=== PATIENT | male | born 1985 | race Caucasian/White ===

== ENCOUNTER 2018-01-30 11:01 | Emergency (ER) | payer OTHER | END 2018-01-30 12:49 | disposition home or self-care (01) | LOC: D.ER 11:01 | DX: M62.838 Other muscle spasm (principal); S16.1XXA Strain of muscle, fascia and tendon at neck level, initial encounter; V86.59XA Driver of other special all-terrain or other off-road motor vehicle injured in nontraffic accident, initial encounter; Y93.89 Activity, other specified; Y92.89 Other specified places as the place of occurrence of the external cause; F17.200 Nicotine dependence, unspecified, uncomplicated ==

== ENCOUNTER 2018-03-24 09:33 | Emergency (ER) | payer OTHER | END 2018-03-24 10:30 | disposition home or self-care (01) | LOC: D.ER 09:33 | DX: M17.11 Unilateral primary osteoarthritis, right knee (principal) ==

== ENCOUNTER 2018-06-16 11:49 | Emergency (ER) | payer OTHER ==
[~2018-06-16] VITALS: Ht 175.3 cm; Wt 64.5 kg
[2018-06-16 12:16] VITALS: BP 138/75; Ht 175.3 cm; Wt 64.5 kg
== END 2018-06-16 14:34 | disposition home or self-care (01) ==
LOC: D.ER 11:49
DX: F41.9 Anxiety disorder, unspecified (principal); R51 Headache; V49.9XXA Car occupant (driver) (passenger) injured in unspecified traffic accident, initial encounter; Y93.89 Activity, other specified; Y92.410 Unspecified street and highway as the place of occurrence of the external cause; F17.200 Nicotine dependence, unspecified, uncomplicated

== ENCOUNTER 2018-06-24 15:54 | Emergency (ER) | payer OTHER ==
[~2018-06-24] VITALS: Ht 175.3 cm; Wt 63.6 kg
[2018-06-24 16:08] VITALS: Ht 175.3 cm; Wt 63.6 kg
[2018-06-24] MEDS ORDERED: TORADOL10 MG PO (17:26)
[2018-06-24 18:32] VITALS: BP 136/78
== END 2018-06-24 18:33 | disposition home or self-care (01) ==
LOC: D.ER 15:54
DX: S01.91XA Laceration without foreign body of unspecified part of head, initial encounter (principal); Y04.2XXA Assault by strike against or bumped into by another person, initial encounter; Y93.89 Activity, other specified; Y92.89 Other specified places as the place of occurrence of the external cause; S50.811A Abrasion of right forearm, initial encounter; S40.211A Abrasion of right shoulder, initial encounter; F17.200 Nicotine dependence, unspecified, uncomplicated

== ENCOUNTER 2018-07-07 18:40 | Emergency (ER) | payer OTHER ==
[~2018-07-07] VITALS: Ht 175.3 cm; Wt 77.3 kg
[~2018-07-07 18:40] MED LIST: TORADOL10 MG PO
[2018-07-07 18:43] VITALS: Ht 175.3 cm; Wt 77.3 kg
[2018-07-07 21:29] LABS: APPEARANCE CLEAR (CLEAR); BILIRUBIN NEGATIVE (NEGATIVE); COLOR YELLOW (YELLOW); GLUCOSE NEGATIVE (NEGATIVE); KETONE NEGATIVE (NEGATIVE); NITRITE NEGATIVE (NEGATIVE); PROTEIN TRACE mg/dL (NEGATIVE); SPECIFIC GRAVITY 1.025 (1.005-1.020); UROBILINOGEN NORMAL (NORMAL)
[2018-07-07 21:39] LABS: UDS - AMPHET POSITIVE QUAL (NEGATIVE); UDS - BARB NEGATIVE QUAL (NEGATIVE); UDS - BENZO NEGATIVE QUAL (NEGATIVE); UDS - COCAINE NEGATIVE QUAL (NEGATIVE); UDS - OPIATE NEGATIVE QUAL (NEGATIVE); UDS - PCP NEGATIVE QUAL (NEGATIVE); UDS - THC NEGATIVE QUAL (NEGATIVE)
[2018-07-08 01:45] VITALS: BP 138/82
== END 2018-07-08 00:29 | disposition other institution (70) ==
LOC: D.ER 18:40
PROVIDERS: Family Medicine
DX: S12.600A Unspecified displaced fracture of seventh cervical vertebra, initial encounter for closed fracture (principal); S32.019A Unspecified fracture of first lumbar vertebra, initial encounter for closed fracture; S32.029A Unspecified fracture of second lumbar vertebra, initial encounter for closed fracture; V89.1XXA Person injured in unspecified nonmotor-vehicle accident, nontraffic, initial encounter; Y93.89 Activity, other specified; Y92.410 Unspecified street and highway as the place of occurrence of the external cause; T14.8XXA Other injury of unspecified body region, initial encounter; M25.512 Pain in left shoulder; M54.5 Low back pain; F17.200 Nicotine dependence, unspecified, uncomplicated

== ENCOUNTER 2019-05-24 13:27 | Emergency (ER) | payer SELFPAY ==
[~2019-05-24] VITALS: Ht 175.3 cm; Wt 81.8 kg
[2019-05-24 13:46] VITALS: Ht 175.3 cm; Wt 81.8 kg
[2019-05-24] MEDS ORDERED: ATHLETE'S FOOT15 GM TOPICAL (19:07)
[2019-05-24 19:15] VITALS: BP 141/75
== END 2019-05-24 19:16 | disposition home or self-care (01) ==
LOC: D.ER 13:27
DX: L55.9 Sunburn, unspecified (principal); B35.6 Tinea cruris

== ENCOUNTER 2019-07-27 14:58 | Emergency (ER) | payer OTHER ==
[~2019-07-27] VITALS: Ht 175.3 cm; Wt 72.7 kg
[~2019-07-27 14:58] MED LIST changes: +ATHLETE'S FOOT15 GM TOPICAL
[2019-07-27 15:38] VITALS: Ht 175.3 cm; Wt 72.7 kg
[2019-07-27] MEDS ORDERED: VOLTAREN75 MG PO (18:23)
[2019-07-27] MEDS ORDERED: VIBRAMYCIN 100100 MG PO (18:23)
[2019-07-27 19:05] VITALS: BP 115/75
== END 2019-07-27 19:06 | disposition home or self-care (01) ==
LOC: D.ER 14:58
DX: L03.115 Cellulitis of right lower limb (principal); Z86.73 Personal history of transient ischemic attack (TIA), and cerebral infarction without residual deficits; F17.210 Nicotine dependence, cigarettes, uncomplicated

== ENCOUNTER 2020-02-04 15:39 | Emergency (ER) | payer OTHER ==
[~2020-02-04] VITALS: Ht 175.3 cm; Wt 63.6 kg
[~2020-02-04 15:39] MED LIST changes: +VIBRAMYCIN 100100 MG PO; +VOLTAREN75 MG PO
[2020-02-04 15:44] VITALS: Ht 175.3 cm; Wt 63.6 kg
[2020-02-04 16:18] LABS: BILIRUBIN NEGATIVE (NEGATIVE); GLUCOSE NEGATIVE (NEGATIVE); KETONE NEGATIVE (NEGATIVE); NITRITE NEGATIVE (NEGATIVE); UROBILINOGEN NORMAL (NORMAL); WHITE CELLS - URINE >50 /hpf (NEGATIVE)
[2020-02-04 16:19] LABS: BACTERIA MODERATE /hpf (NEGATIVE)
[2020-02-04 16:24] VITALS: BP 116/68
== END 2020-02-04 16:25 | disposition home or self-care (01) ==
LOC: D.ER 15:39
PROVIDERS: Family Medicine
DX: A64 Unspecified sexually transmitted disease (principal); N50.819 Testicular pain, unspecified

== ENCOUNTER 2020-03-19 17:39 | Emergency (ER) | payer SELFPAY ==
[2020-03-19 17:49] VITALS: BP 129/73; Ht 175.3 cm
== END 2020-03-19 20:14 | disposition left against medical advice (07) ==
LOC: D.ER 17:39
DX: Z20.2 Contact with and (suspected) exposure to infections with a predominantly sexual mode of transmission (principal)

== ENCOUNTER 2020-03-21 16:42 | Emergency (ER) | payer SELFPAY ==
[~2020-03-21] VITALS: Ht 175.3 cm; Wt 72.7 kg
[2020-03-21 16:58] VITALS: Ht 175.3 cm; Wt 72.7 kg
[2020-03-21 17:38] LABS: BASOPHILS 0.4 % (0-2); EOSINOPHILS 1.3 % (0-7); HEMATOCRIT 45.1 % (42.0-54.0); HEMOGLOBIN 14.8 g/dL (13.5-17.5); IMMATURE GRANULOCYTES 0.4 % (0-5); LYMPHOCYTES 28.1 % (15-50); MCH 30.1 pg (26.0-34.0); MCHC 32.8 g/dL (31.0-37.0); MCV 91.7 fL (80.0-100.0); MEAN PLATELET VOLUME 8.9 fL (7.4-10.4); MONOCYTES 5.7 % (2-11); NEUTROPHILS 64.1 % (40-80); PLATELET COUNT 250 10x3/uL (130-400); RBC 4.92 10x6/uL (4.20-6.10); RDW 13.8 % (11.5-14.5); WBC 6.7 10x3/uL (4.8-10.8)
[2020-03-21 18:00] LABS: CALC OSMOLALITY 277 mosm/kg (275-300); CARBON DIOXIDE 30.8 mmol/L (21.0-32.0); CHLORIDE - SERUM 104 mmol/L (98-107); GLUCOSE 103 mg/dL (74-106); POTASSIUM - SERUM 3.5 mmol/L (3.5-5.1); SODIUM 140 mmol/L (136-145); UREA NITROGEN 9 mg/dL (7-18); eGFR NON AFRICAN AMERICAN > 90 mL/min (90-120)
[2020-03-21 18:05] LABS: BILIRUBIN NEGATIVE (NEGATIVE); GLUCOSE NEGATIVE (NEGATIVE); KETONE NEGATIVE (NEGATIVE); NITRITE NEGATIVE (NEGATIVE); UROBILINOGEN NORMAL (NORMAL); WHITE CELLS - URINE 25-50 /hpf (NEGATIVE)
[2020-03-21 18:05] LABS: ALBUMIN 3.2 g/dL (3.4-5.0); ALKALINE PHOSPHATASE 102 U/L (30-120); ALT (SGPT) 48 U/L (10-68); BILIRUBIN - TOTAL 0.19 mg/dL (0.2-1.3); PROTEIN - SERUM 7.4 g/dL (6.4-8.2)
[2020-03-21 18:06] LABS: BACTERIA FEW /hpf (NEGATIVE); RED CELLS - URINE OCC /hpf (0-5)
[2020-03-21 18:42] VITALS: BP 156/90
[2020-03-21] MEDS ORDERED: VOLTAREN75 MG PO (19:08)
[2020-03-21] MEDS ORDERED: CIPRO500 MG PO (19:08)
[2020-03-21] MEDS ORDERED: VIBRAMYCIN 100100 MG PO (19:08)
== END 2020-03-21 20:05 | disposition home or self-care (01) ==
LOC: D.ER 16:42
PROVIDERS: Family Medicine
DX: N45.3 Epididymo-orchitis (principal); A54.9 Gonococcal infection, unspecified; R36.9 Urethral discharge, unspecified; N50.819 Testicular pain, unspecified

== ENCOUNTER 2020-04-18 16:41 | Emergency (ER) | payer MEDICAID ==
[~2020-04-18] VITALS: Ht 175.3 cm; Wt 68.2 kg
[~2020-04-18 16:41] MED LIST changes: +CIPRO500 MG PO
[2020-04-18 16:43] VITALS: BP 128/69; Ht 175.3 cm; Wt 68.2 kg
== END 2020-04-18 17:18 | disposition home or self-care (01) ==
LOC: D.ER 16:41
DX: H57.11 Ocular pain, right eye (principal); F15.90 Other stimulant use, unspecified, uncomplicated

== ENCOUNTER 2020-06-25 17:48 | Emergency (ER) | payer MEDICAID ==
[~2020-06-25] VITALS: Ht 175.3 cm; Wt 59.1 kg
[2020-06-25 18:01] VITALS: BP 138/88; Ht 175.3 cm; Wt 59.1 kg
== END 2020-06-25 23:27 | disposition left against medical advice (07) ==
LOC: D.ER 17:48
DX: Z20.2 Contact with and (suspected) exposure to infections with a predominantly sexual mode of transmission (principal)

== ENCOUNTER 2020-06-27 12:34 | Emergency (ER) | payer MEDICAID ==
[~2020-06-27] VITALS: Ht 175.3 cm; Wt 61.4 kg
[2020-06-27 12:41] VITALS: Ht 175.3 cm; Wt 61.4 kg
[2020-06-27 14:11] LABS: BILIRUBIN NEGATIVE (NEGATIVE); KETONE NEGATIVE (NEGATIVE); NITRITE NEGATIVE (NEGATIVE)
[2020-06-27 14:15] LABS: BACTERIA FEW /hpf (NEGATIVE); EPITHELIAL CELLS OCC /hpf (0-5); RED CELLS - URINE OCC /hpf (0-5); WHITE CELLS - URINE >50 /hpf (NEGATIVE)
[2020-06-27] MEDS ORDERED: CIPRO500 MG PO (15:39)
[2020-06-27 16:08] VITALS: BP 139/67
== END 2020-06-27 16:08 | disposition home or self-care (01) ==
LOC: D.ER 12:34
DX: N39.0 Urinary tract infection, site not specified (principal); A64 Unspecified sexually transmitted disease; N50.819 Testicular pain, unspecified; Z86.73 Personal history of transient ischemic attack (TIA), and cerebral infarction without residual deficits

== ENCOUNTER 2021-03-06 23:47 | Emergency (ER) | payer OTHER ==
[~2021-03-06] VITALS: Ht 175.3 cm; Wt 68.2 kg
[2021-03-06 23:55] VITALS: Ht 175.3 cm; Wt 68.2 kg
[2021-03-07] MEDS ORDERED: HYDROCODONE-AC1 EAC2 PO (01:40)
[2021-03-07 01:49] VITALS: BP 140/72
== END 2021-03-07 01:47 | disposition home or self-care (01) ==
LOC: D.ER 23:47
DX: S52.202A Unspecified fracture of shaft of left ulna, initial encounter for closed fracture (principal); W19.XXXA Unspecified fall, initial encounter; Y93.9 Activity, unspecified; Y92.9 Unspecified place or not applicable